=== PATIENT | male | born 1945 | race Caucasian/White ===

== ENCOUNTER 2017-02-28 08:04 | Emergency (ER) | payer OTHER ==
[~2017-02-28] VITALS: Ht 175.3 cm; Wt 75.1 kg
[~2017-02-28 08:04] MED LIST: COUMADIN1 MG PO
[2017-02-28 09:06] LABS: EOSINOPHIL (%) 4.7 % (0-5); EOSINOPHIL COUNT 0.2 K/uL (0-0.3); HEMATOCRIT 36.8 % (38.0-50.0); IMMATURE GRANULOCYTE (%) 0.2 % (0.0-0.7); INSTRUMENT ABS NEUTROPHIL CT 2.5 K/uL; LYMPHOCYTE COUNT 1.4 K/uL (1.0-2.8); MCH 29.1 PG (29.0-34.0); MCHC 32.1 G/DL (30.0-36.0); MCV 90.6 FL (86-99); MEAN PLAT.VOLUME 10.9 uM^3 (9.0-12.4); MONOCYTE (%) 13.4 % (3-12); MONOCYTE COUNT 0.6 K/uL (0-0.8); NEUTROPHIL (%) 52.4 % (45-76); NEUTROPHIL COUNT 2.5 K/uL (1.8-6.4); PLATELET COUNT 184 K/uL (156-360); RBC DIS.WIDTH-CV 13.7 % (11.8-14.6); RBC DIS.WIDTH-SD 45.9 % (39-53); RED BLOOD COUNT 4.06 M/uL (4.00-5.50); WHITE BLOOD COUNT 4.7 K/uL (4.1-10.2)
[2017-02-28 09:15] LABS: CHLORIDE 106 mEq/L (99-109); POTASSIUM 4.5 mEq/L (3.7-5.4); SODIUM 138 mEq/L (136-147)
[2017-02-28 09:17] LABS: GLUCOSE 89 mg/dL (70-99)
[2017-02-28 09:19] LABS: ANION GAP 8 MEQ/L (2-14); TOTAL BILIRUBIN 0.6 mg/dL (0.0-1.0)
[2017-02-28 09:21] LABS: ALKALINE PHOSPHATASE 95 IU/L (3-129); GFR ESTIMATE (CALCULATED) > 59 mL/min/
[2017-02-28 09:22] LABS: UREA NITROGEN (BUN) 13 mg/dL (9-23)
[2017-02-28 14:02] VITALS: BP 148/68
[2017-03-01] MEDS ORDERED: OXYCODONE HCL10 MG PO (08:45)
[2017-03-01] MEDS ORDERED: PLAVIX75 MG PO (08:45)
[2017-03-01] MEDS ORDERED: XARELTO20 MG PO (08:46)
[2017-03-01] MEDS ORDERED: ATORVASTATIN CA40 MG PO (22:09)
== END 2017-02-28 12:11 | disposition left against medical advice (07) ==
LOC: EME 08:04
PROVIDERS: Physician Assistant
DX: T82.868A Thrombosis due to vascular prosthetic devices, implants and grafts, initial encounter (principal); I73.9 Peripheral vascular disease, unspecified; L03.115 Cellulitis of right lower limb; Z95.820 Peripheral vascular angioplasty status with implants and grafts; Y83.2 Surgical operation with anastomosis, bypass or graft as the cause of abnormal reaction of the patient, or of later complication, without mention of misadventure at the time of the procedure; Z79.01 Long term (current) use of anticoagulants; F17.200 Nicotine dependence, unspecified, uncomplicated
CPT/HCPCS: 73701; 80053; 83605; 85025; 87040; 87070; 87075; 87077; 87147; 87186; 87205; 93971; 99281; 99285; J3010; J3370; J7120